=== PATIENT | male | born 1960 | race Caucasian/White ===

== ENCOUNTER → 2016-08-04 | Outpatient (CLI) | payer OTHER ==
[~2016-08-04] MED LIST: CLON0.1T12 PO; LANS15CA6 PO; LOSA1TAB38 PO; METO100T14 PO
== END | disposition home or self-care (01) ==
LOC: C.LABPBG 12:25
PROVIDERS: ATTEND Family Medicine
DX: Z11.59 Encounter for screening for other viral diseases (principal)